=== PATIENT | female | born 1985 | race Caucasian/White ===

== ENCOUNTER → 2024-04-15 13:48 | Outpatient (BNVA) | payer BC, MEDICAID, SELFPAY | PROVIDERS: PCP Registered Nurse; Visit Provider Podiatrist Foot & Ankle Surgery | DX: M79.671 Pain in right foot (principal); Z98.890 Other specified postprocedural states; M20.5X1 Other deformities of toe(s) (acquired), right foot; M77.8 Other enthesopathies, not elsewhere classified; M65.9 Synovitis and tenosynovitis, unspecified; M21.611 Bunion of right foot | CPT/HCPCS: 73630 ==

== ENCOUNTER 2024-09-10 05:49 | Day surgery (SDC) | payer BC, MEDICAID, SELFPAY ==
[2024-09-10] VITALS (11 sets, daily range): BP systolic 98–133; BP diastolic 65–83; PULSE 49–66; RESP 14–25; TEMP 36.4–36.8; O2SAT 96–100; BMI 26.6
[2024-09-10] MEDS: sodium chloride 0.9% 1,000 ML 30 ML IV (06:22)
--- NOTE | 2024-09-10 06:30 | PM.OPSURHP ---
Providers/Chief Complaint Primary Care Provider: Nithya Calloway Chief Complaint: M20.5X1 History of Present Illness Komal Pride is a 38 year old female presenting with pain and stiffness in the right foot joint. She reports that the issue has been ongoing and is associated with degenerative changes as noted on a recent MRI. The imaging showed arthritis in the affected joint, resulting in decreased joint mobility and pain exacerbation, particularly at the site of a bunion. The patient indicates aching pain that throbs and radiates when moving the foot. She has a previous history of surgery on the same foot but reports that the symptoms have persisted. The condition leads to significant discomfort, particularly when performing activities that require bending of the toe, as her range of motion is reduced drastically to 20 degrees compared to the normal 65 degrees for dorsiflexion. Previous interventions included wearing sturdier footwear and taking anti-inflammatory medication. Despite these, symptoms have persisted, impacting daily activities and mobility. Review of Systems General: Reports: 10 or more systems reviewed and unremarkable except in HPI and below Const: Denies: fever(s) or chills Eyes: Denies: change in vision Card: Denies: chest pain or palpitations Resp: Denies: dyspnea or productive cough GI: Denies: abdominal pain, nausea or vomiting : Denies: flank pain Musc: Reports: extremity pain, joint pain, joint stiffness, limited range of motion and deformity Skin/Breast: Reports: skin tenderness; Denies: rash Neuro: Reports: difficulty walking; Denies: numbness in extremities, sensory changes or frequent falls Psych: Denies: suicidal ideation Agus/Lymph: Denies: easy bruising Medications/Allergies Home Medications Medication Instructions Recorded Confirmed Last Taken Type No Known Home Medications 05/31/24 09/09/24 Unknown History Allergies Allergy/AdvReac Type Severity Reaction Status Date / Time Penicillins Allergy Intermediate Unknown Verified 07/27/24 08:40 PFSH PFSH: Surgical History (Updated 09/10/24 @ 06:31 by Richard Rodrigues DPM) History of bunionectomy of right great toe surgery took place in year 1998 Social History Smoking and tobacco/nicotine status: never used tobacco/nicotine Quit status (tobacco/nicotine): considering quitting Second hand smoke exposure: No Alcohol intake: never Substance/Drug Use: current Caregiver/support person: No Lives independently: Yes Vital Signs Vitals Signs: Last Vital Signs Temp 97.6 F 09/10/24 06:06 Pulse 66 09/10/24 06:06 Resp 18 09/10/24 06:06 BP 112/81 09/10/24 06:06 Pulse Ox 98 09/10/24 06:06 O2 Del Method Room Air 09/10/24 06:06 Weight: Weight last 48 hrs Weight 160 lb Physical Exam Narrative: EXAM NARRATIVE: Patient is alert and oriented ?3 and in no acute distress. The following is a focused bilateral lower extremity exam. VASCULAR: Dorsalis pedis and posterior tibial arteries palpable +2. Capillary refill time less than 3 seconds to the distal hallux bilaterally. Calf is supple and nontender proximally and distally. No pedal edema appreciated. Pedal hair growth present. NEUROLOGICAL: Epicritic and protopathic sensations grossly intact to the lower extremities. +2 Achilles tendon reflex noted bilaterally. Negative Tinel sign upon percussion of lower extremity nerves. DERMATOLOGICAL: Lower extremity skin is well-hydrated, normal texture and turgor. There are no open sores or lesions noted to the lower extremities. No erythema or ecchymosis present to the bilateral legs and feet. MUSCULOSKELETAL: Tenderness at right first metatarsal phalangeal joint with mild bunion deformity, there is significant decrease in dorsiflexion at right first metatarsal phalangeal joint, there is pain and guarding with dorsiflexion to 20 degrees, not able to dorsiflex beyond 20 degrees. No palpable mass along the course of the plantar fascia appreciated. No pain to palpation along the course of the bilateral Achilles tendon. No pain to palpation along the course posterior tibial tendon or peroneal tendons. No pain with [id number] compression of calcaneus, bilaterally. Muscle strength is 5/5 in all 3 cardinal planes pain-free without guarding to the foot and ankle, bilaterally. CARDIOVASCULAR: S1, S2, normal rate, normal rhythm. Dorsalis pedis and posterior tibial arteries palpable. LUNGS: Clear to auscltation, no use of acessory muscles, no crackles or wheezes. A&P Assessment and plan (1) Capsulitis of right foot: (2) Hallux rigidus, right foot: Plan 38-year-old female with a history of previous foot surgery, presenting with degenerative arthritis in the right foot, manifesting as hallux rigidus. The MRI confirms advanced degenerative changes resulting in pain and limited motion, particularly affecting daily functional activities and quality of life. The reduction in dorsiflexion to 20 degrees significantly impacts mobility. Previous conservative treatment including anti-inflammatories and sturdy footwear has been partially effective in managing symptoms. 1. Hallux rigidus, right foot M20.21 Hallux rigidus causing stiffness and limited mobility in the right big toe is confirmed. Non-surgical interventions include the use of orthotics and anti-inflammatory agents. Surgical options have also been discussed, with emphasis on joint remodeling and increasing dorsiflexion. The patient is informed about post-operative therapy to maintain mobility and prevent scarring. Surgery is anticipated to improve but may not fully resolve symptoms; gradual increase in physical activity is planned post-surgery, focusing on mobility exercises. 2. Primary osteoarthritis, right ankle and foot M19.071 The degenerative arthritis of the right foot, particularly impacting the joint at the base of the right big toe, has been addressed by explaining both non-surgical and surgical options. Nonsurgical management includes continued use of sturdy shoes and anti-inflammatory medications. Orthotics to support the foot structure are also recommended to improve function. Surgical intervention may be considered, involving joint cleaning, removal of scar tissues, and remodeling of the spur. The patient is advised on realistic outcomes with surgery, aiming to reduce pain by 50% while improving motion. Post-operative expectations include two weeks of limited mobility and six weeks of wearing a hard plastic boot for support. I reviewed at length with the patient, the risks, potential complications, benefits, alternatives, expectations, and typical outcomes associated with the surgery. The risks and potential complications were explained in detail, including but not limited to infection, wound dehiscence or soft tissue complications, bleeding and hematoma, chronic edema, neuritis or nerve damage producing numbness or chronic pain, CRPS, failure to relieve pain or worsening pain, thick / painful / unsightly scar, limited motion / stiffness, malposition, delayed union, malunion, or nonunion, fracture, reaction to implants, anesthetic complications, venous thromboembolism, and deformity recurrence. I discussed the notion of no regrets with the patient as it pertains to complications and outcomes. The patient seemed to understand the nature of the proposed care and required convalescence. They asked appropriate questions, answered to their satisfaction. They are aware no guarantees can be made as to a satisfactory outcome and they understand there may be other possible unforeseen complications or outcomes not listed here that will be treated accordingly if they arise. There were no written or implied guarantees given to the patient. They gave informed consent to proceed. - Continue wearing sturdier shoes and consider orthotics to support foot structure. - Use anti-inflammatory medications as prescribed for pain management. - If considering surgery, prepare for a post-operative course involving limited activity and use of a protective boot for mobility. - Engage in post-operative physical therapy focusing on maintaining joint movement. Coding Level of Care Code Acute Code for [facility] Fwd Diagnoses Capsulitis of right foot M77.8 Hallux rigidus, right foot M20.21
--- NOTE | 2024-09-10 06:32 | P.HPUD_ITS ---
Surgery/Procedure H&P Update DATE OF PROCEDURE: September 10, 2024 DATE H&P PERFORMED: 09/10/24 H&P UPDATE INFORMATION: I have reviewed H&P completed within last 30 days, I have examined patient prior to procedure, No changes to prior documentation and H&P is in [facility] [place] on date indicated PREOP DIAGNOSIS: Right hallux rigidus PLANNED PROCEDURE: Operation Date: 09/10/24 07:00 Proposed Procedures p Modified [place] bunionectomy right foot(Right) - Richard Rodrigues DPM
--- NOTE | 2024-09-10 06:34 | ANES.PREANE2 ---
Pre-Anesthetic Assessment Height/Weight: Height 1.65 m Weight 72.575 kg Temp Pulse Resp BP Pulse Ox O2 Del Method 97.6 F 66 18 112/81 98 Room Air 09/10/24 06:06 09/10/24 06:06 09/10/24 06:06 09/10/24 06:06 09/10/24 06:06 09/10/24 06:06 Preop Diagnosis: Right hallux rigidus Operation Date: 09/10/24 07:00 Proposed Procedures p Modified [place] bunionectomy right foot(Right) - Richard Rodrigues DPM Familial anesthetic complications: Woke up during her bunion surgery at age 13 to the sound of the bone saw Was Beta Diana taken within 24 hours: N/A Was Clonidine taken within 24 hours: N/A Last intake: Intake Last Liquid Date 09/09/24 Last Liquid Time 20:30 Last Solid Date 09/09/24 Last Solid Time 20:30 Social No alcohol Vapes Exam alert, oriented x 3, clear to auscultation bilaterally and regular rate & rhythm Airway Mallampati: Class I Dentition: full Anesthetic Plan ASA status: 1 Anesthesia: MAC Risk of > 500 ml blood loss (7ml/kg in children): No Medications/Allergies Home Medications Medication Instructions Recorded Confirmed Last Taken Type No Known Home Medications 05/31/24 09/09/24 Unknown History Allergies Allergy/AdvReac Type Severity Reaction Status Date / Time Penicillins Allergy Intermediate Unknown Verified 07/27/24 08:40 Current Medications Generic Name Dose Route Start Last Admin Trade Name Freq PRN Reason Stop Dose Admin Sodium Chloride 1,000 mls @ 30 mls/hr 09/10/24 06:00 09/10/24 06:22 Sodium Chloride 0.9% IV 09/11/24 05:59 30 mls/hr .Q24H CARISSA Administration PFS Anesthesia Surgical History (Updated 09/10/24 @ 06:31 by Richard Rodrigues DPM) History of bunionectomy of right great toe surgery took place in year 1998 Social History Smoking and tobacco/nicotine status: never used tobacco/nicotine Quit status (tobacco/nicotine): considering quitting Second hand smoke exposure: No Alcohol intake: never Substance/Drug Use: current Caregiver/support person: No Lives independently: Yes Data Anesthesia Cardiac Studies: No Data to Display
[2024-09-10] MEDS: clindamycin 600 MG/50 ML PREMIX 100 MG IV (07:07)
[2024-09-10 07:08] LABS: OR HCG Qualitative Urine Negative (Negative)
[2024-09-10] MEDS: BUPivacaine 0.5% INJ 10 mL 20 ML INJECTION (07:31)
[2024-09-10] MEDS: BUPivacaine liposome 13.3 mg/mL SDV 20 mL 266 MG INJECTION (07:32)
--- NOTE | 2024-09-10 07:54 | P.OP_ITS ---
Operative Report Date of procedure: September 10, 2024 Pre-op diagnosis: Hallux limitus of right foot M20.5X1 Capsulitis of right foot M77.8 Tenosynovitis M65.90 Post-op diagnosis: Hallux limitus of right foot M20.5X1 Capsulitis of right foot M77.8 Tenosynovitis M65.90 Post-op findings: Improved range of motion following soft tissue release and cheilectomy to the right first metatarsal phalangeal joint Procedure done: Cheilectomy right foot. CPT code 71620 Implants: 3-0 Vicryl, 4-0 Vicryl, 4-0 nylon Specimens removed/disposition: none Pathology: None Surgeon: Richard Rodrigues DPM Powder Room Attendant: Walter Estimated blood loss: 1 22 IV fluids: See intraoperative documentation Urine output: None Complications: No complications Findings: capsular adhesions and bony overgrowth at the first metatarsal phalangeal joint consistent with hallux rigidus symptoms noted preoperatively which was improved after cheilectomy Brief History: 38-year-old female with a history of previous foot surgery, presenting with degenerative arthritis in the right foot, manifesting as hallux rigidus. The MRI confirms advanced degenerative changes resulting in pain and limited motion, particularly affecting daily functional activities and quality of life. The reduction in dorsiflexion to 20 degrees significantly impacts mobility. Previous conservative treatment including anti-inflammatories and sturdy footwear has been partially effective in managing symptoms. 1. Hallux rigidus, right foot M20.21 Hallux rigidus causing stiffness and limited mobility in the right big toe is confirmed. Non-surgical interventions include the use of orthotics and anti- inflammatory agents. Surgical options have also been discussed, with emphasis on joint remodeling and increasing dorsiflexion. The patient is informed about post-operative therapy to maintain mobility and prevent scarring. Surgery is anticipated to improve but may not fully resolve symptoms; gradual increase in physical activity is planned post-surgery, focusing on mobility exercises. 2. Primary osteoarthritis, right ankle and foot M19.071 The degenerative arthritis of the right foot, particularly impacting the joint at the base of the right big toe, has been addressed by explaining both non- surgical and surgical options. Nonsurgical management includes continued use of sturdy shoes and anti-inflammatory medications. Orthotics to support the foot structure are also recommended to improve function. Surgical intervention may be considered, involving joint cleaning, removal of scar tissues, and remodeling of the spur. The patient is advised on realistic outcomes with surgery, aiming to reduce pain by 50% while improving motion. Post-operative expectations include two weeks of limited mobility and six weeks of wearing a hard plastic boot for support. I reviewed at length with the patient, the risks, potential complications, benefits, alternatives, expectations, and typical outcomes associated with the surgery. The risks and potential complications were explained in detail, including but not limited to infection, wound dehiscence or soft tissue complications, bleeding and hematoma, chronic edema, neuritis or nerve damage producing numbness or chronic pain, CRPS, failure to relieve pain or worsening pain, thick / painful / unsightly scar, limited motion / stiffness, malposition, delayed union, malunion, or nonunion, fracture, reaction to implants, anesthetic complications, venous thromboembolism, and deformity recurrence. I discussed the notion of no regrets with the patient as it pertains to complications and outcomes. The patient seemed to understand the nature of the proposed care and required convalescence. They asked appropriate questions, answered to their satisfaction. They are aware no guarantees can be made as to a satisfactory outcome and they understand there may be other possible unforeseen complications or outcomes not listed here that will be treated accordingly if they arise. There were no written or implied guarantees given to the patient. They gave informed consent to proceed. Procedure: Under mild sedation patient was brought to the operating room and remained on the gurney in supine position. A timeout was performed. Anesthesia was then administered by the anesthesia service. Local anesthesia injected by myself consisting of 20 cc of 0.5 to Marcaine plain in a right male block fashion followed by an additional 20 cc of Exparel subcutaneously at the medial forefoot right foot. Well-padded pneumatic tourniquet applied to the right ankle. The right lower extremity was scrubbed, prepped and draped utilizing normal aseptic technique. Right foot was then exanguinated with an Esmarch bandage and tourniquet inflated to 250 mmHg. Attention was directed to the right first metatarsal phalangeal joint with notable decreased dorsiflexion appreciated intraoperatively able to dorsiflex to approximately 20 degrees. A linear longitudinal incision incision was made at the dorsal medial aspect of the right first metatarsal phalangeal joint through skin with a #15 blade with dissection carried down through subcutaneous tissue to the layer of joint capsule which was incised and was able to appreciate significant adhesions and fibrosing of the joint capsule limiting its range of motion along with bony overgrowth at the head of the first metatarsal intraoperative decision was made given these findings to perform a cheilectomy to assess range of motion at that point and then move onto an osteotomy if needed to decompress the joint. A cheilectomy was performed utilizing a rotary bur and bone resurfacing total to minimize thermal necrosis incision was irrigated with saline solution, all capsular adhesions were released and the capsule was debulked of its thickening. Intraoperative range of motion was significantly improved at this point able to dorsiflex to approximately 55 degrees and the decision was made intraoperatively to not perform an osteotomy that would not be justified and increase her complications of healing and even healing time. The incision was irrigated with saline solution and the capsule was reapproximated with 3-0 Vicryl with care not to over tighten, subcutaneous tissue with 4-0 Vicryl and skin with 4-0 nylon. The incision was then dressed with Adaptic sterile 4 x 4's Kerlix and Raghavendra wrap followed by application of a postop shoe. Tourniquet was deflated and a prompt hyperemic response was noted to the distal digits of the right foot. Patient tolerated the procedure and anesthesia well and was transferred to the PACU with vital signs stable and vascular status intact. Following a period of postoperative monitoring she will be discharged home without home care instructions and scheduled follow-up.
--- NOTE | 2024-09-10 08:00 | P.BOP_ITS ---
Date of Procedure: 10/31/23 Surgeon: Richard Rodrigues DPM Anesthesiologist Attending(s): Walter Procedure(s) performed: Cheilectomy right foot. Findings of the procedure(s): Hallux rigidus right foot. Estimated blood loss: 1 mL Specimen(s) removed: No specimens removed. Post-operative diagnosis: Right hallux rigidus
--- NOTE | 2024-09-10 09:05 | ANE.PACU2 ---
Inpatient post-anesthesia follow up: Airway intact: Yes Vital signs: Temperature 98.0 F Pulse Rate 52 Respiratory Rate 16 Blood Pressure 110/76 Pulse Oximetry 97 Oxygen Delivery Me thod Room Air Oxygen Flow Rate Fraction of Inspir ed Oxygen Hydration adequate: Yes Nausea and vomiting: No Pain level: 1 Mental status: Baseline
== END 2024-09-10 09:09 | disposition home or self-care (01) ==
PROVIDERS: Anesthesiology; PCP Registered Nurse; Visit Provider Podiatrist Foot & Ankle Surgery
PROC: (CPT 28296; principal; 2024-09-10 07:00)
DX: M20.5X1 Other deformities of toe(s) (acquired), right foot (principal); M77.8 Other enthesopathies, not elsewhere classified; M65.871 Other synovitis and tenosynovitis, right ankle and foot
CPT/HCPCS: 28289; 81025; C9290; J2250; J2704; J3010; J3490; J7030

== ENCOUNTER → 2024-09-27 13:46 | Outpatient (BNVA) | payer BC, MEDICAID, SELFPAY | PROVIDERS: PCP Registered Nurse; Visit Provider Podiatrist Foot & Ankle Surgery | DX: Z98.890 Other specified postprocedural states (principal); M20.21 Hallux rigidus, right foot | CPT/HCPCS: 73630 ==

== ENCOUNTER → 2024-10-28 10:58 | Outpatient (BNVA) | payer BC, MEDICAID, SELFPAY | PROVIDERS: PCP Registered Nurse; Visit Provider Podiatrist Foot & Ankle Surgery | DX: M20.21 Hallux rigidus, right foot (principal); Z98.890 Other specified postprocedural states | CPT/HCPCS: 73630 ==